=== PATIENT | male | born 1960 | race American Indian/Alaskan Native ===

== ENCOUNTER 2018-07-09 11:48 | Inpatient (IN) | payer SELFPAY ==
[2018-07-09 15:15] LABS: BUN/Creatinine Ratio 8; Blood Urea Nitrogen 5 mg/dL (9-20); Calcium 7.8 mg/dL (8.4-10.2); Hemolysis Index 0
[2018-07-09 15:19] LABS: Mean Corpuscular HGB Conc 29 % (32-34); Mean Corpuscular Hemoglobin 26 pg (28-32); Mean Corpuscular Volume 91 fl (84-94); Red Blood Count 1.29 M/mm3 (3.65-5.03)
[2018-07-09 15:24] LABS: Hematocrit 11.7 % (35.5-45.6); Hemoglobin 3.4 gm/dl (11.8-15.2); Red Cell Distribution Width 21.1 % (13.2-15.2)
[2018-07-09 15:25] LABS: Platelet Count 58 K/mm3 (140-440)
[2018-07-09] MEDS ORDERED: NACL 0.9% 500 ML 500 ML IV ONE (16:24)
--- NOTE | 2018-07-09 16:27 | Emergency Department Report ---
HPI - General Chief Complaint: Extremity Injury, Lower Time Seen by Provider: 07/09/18 16:13 - HPI HPI: 58 year-old male presents to the emergency department from home via EMS with complaint of pain to the bilateral feet and legs and some history of anemia. Patient says that he saw his primary care physician, Dr. Song Weber, through [place] on the of this month and was found to have a significantly low hemoglobin. The patient says that he was called at home when the results came back and was told to get to the emergency department but he did not go at that time. He says that doctor told him that his hemoglobin was less than 1 at that time. He has a history of peripheral neuropathy and was hoping that the discomfort would go away. He denies any chest pain, abdominal pain, shortness of breath, dizziness, headache. He denies any rectal bleeding or any abnormal bleeding from anywhere. He has not taken anything for his symptoms prior to presentation. He is a former smoker and just recently quit in March of this year. ED Past Medical Hx - Past Medical History Additional medical history: neuropathy - Surgical History Additional Surgical History: fempop-Weld 1986 with Fx Femur and KENDALL - Social History Smoking Status: Former Smoker Substance Use Type: Alcohol ED Review of Systems ROS: Stated complaint: LEG PAIN Other details as noted in HPI Comment: All other systems reviewed and negative Constitutional: denies: chills, fever Eyes: denies: eye pain, eye discharge, vision change ENT: denies: ear pain, throat pain Respiratory: denies: cough, shortness of breath, wheezing Cardiovascular: denies: chest pain, palpitations Gastrointestinal: denies: abdominal pain, nausea, diarrhea Genitourinary: denies: urgency, dysuria Musculoskeletal: arthralgia, myalgia. denies: joint swelling Skin: denies: rash, lesions Neurological: denies: headache, weakness, paresthesias Physical Exam - Physical Exam Vital Signs: Vital Signs 07/09/18 11:52 Temperature 98.7 F Pulse Rate 86 Respiratory 16 Rate Blood Pressure 115/62 O2 Sat by Pulse 100 Oximetry Physical Exam: GENERAL: The patient is well-developed well-nourished. HENT: Normocephalic. Atraumatic. Patient has moist mucous membranes. EYES: Extraocular motions are intact. Pupils equal reactive to light bilaterally. Pale conjunctiva. NECK: Supple. Trachea is midline. CHEST/LUNGS: Clear to auscultation. There is no respiratory distress noted. HEART/CARDIOVASCULAR: Regular. There is no tachycardia. There is no murmur. ABDOMEN: Abdomen is soft, nontender. Patient has normal bowel sounds. There is no abdominal distention. SKIN: Skin is warm and dry. NEURO: The patient is awake, alert, and oriented. The patient is cooperative. The patient has no focal neurologic deficits. The patient has normal speech. MUSCULOSKELETAL: There is no tenderness or deformity. There is no limitation range of motion. There is no evidence of acute injury. ED Course Vital Signs 07/09/18 11:52 Temperature 98.7 F Pulse Rate 86 Respiratory 16 Rate Blood Pressure 115/62 O2 Sat by Pulse 100 Oximetry ED Medical Decision Making - Lab Data Result diagrams: 07/09/18 14:57 07/09/18 13:53 - EKG Data -: EKG Interpreted by [facility] EKG shows normal: sinus rhythm, axis, intervals, QRS complexes (Q waves to the septal leads), ST-T waves Rate: normal - EKG Data When compared to previous EKG there are: previous EKG unavailable Interpretation: other (sinus rhythm, normal axis, normal intervals, Q wave to the septal leads) - Medical Decision Making Patient presented originally with complaint of some peripheral neuropathy. Some basic lab work was done that found the patient have significant anemia and thrombocytopenia. No signs of any bleeding. Patient later admits that he does have at least a recent history of anemia and was previously "sent in" for evaluation of his low hemoglobin but he waited about 10 days to do so. Hemoglobin today is 3.4 and platelet count is close to 50. A type and screen has been ordered and the patient will get 4 units of packed red blood cells for transfusion. Patient does not have any chest pain, shortness of breath, neurological changes but his chills and shaking earlier may be secondary to these lab abnormalities. The patient has been presented to the admitting hospitalist for admission, Dr. Avalos. - Differential Diagnosis iron deficiency, B12 deficiency, GI bleed Critical Care Time: No Critical care attestation.: If time is entered above; I have spent that time in minutes in the direct care of this critically ill patient, excluding procedure time. ED Disposition Clinical Impression: Anemia requiring transfusions Peripheral neuropathy Qualifiers: Peripheral neuropathy type: polyneuropathy, unspecified Qualified Code(s): G62.9 - Polyneuropathy, unspecified Disposition: DC-09 OP ADMIT IP TO THIS HOSP Is pt being admited?: Yes Condition: Fair Referrals: PRIMARY CARE, [Primary Care Provider] - 3-5 Days Time of Disposition: 17:48
[2018-07-09 17:19] LABS: Iron 20 ug/dL (49-181); Total Iron Binding Capacity 307 mcg/dL (250-450)
[2018-07-09] MEDS ORDERED: NACL 0.9% 1000 ML 1,000 ML ONE (19:46)
--- NOTE | 2018-07-09 21:47 | History and Physical Report ---
History of Present Illness Date of examination: 07/09/18 History of present illness: 58-year-old man history of hypertension was sent to the emergency room emergency room by his primary care physician for evaluation for anemia. Patient complains of shortness of breath, dizziness, generalized weakness. He denies any hematemesis, but in stool. NSAIDS Review of systems Constitutional: no weight loss, chills, fever Ears, eyes, nose, mouth and throat: no nasal congestion, no nasal discharge, no sinus pressure, no vision change, no red eye. Neck: No neck pain or rigidity. Cardiovascular: no chest pain, palpitations Respiratory: no cough, shortness of breath Gastrointestinal: no abdominal pain hematochezia Genitourinary : no frequency , no hematuria Musculoskeletal: no joint swelling or muscle ache Integumentary: no rash, no pruritis Neurological: no parathesias, no numbness, no focal weakness Endocrine: no cold or heat intolerance, no polyuria or polydipsia Hematologic/Lymphatic: no easy bruising, no easy bleeding, no gland swelling Allergic/Immunologic: no urticaria, no angioedema. PAST MEDICAL HISTORY: Hypertension PAST SURGICAL HISTORY: Femoropopliteal SOCIAL HISTORY: + alcohol, no drugs, tobacco FAMILY HISTORY: Hypertension Medications and Allergies Allergies Allergy/AdvReac Type Severity Reaction Status Date / Time No Known Allergies Allergy Unverified 07/09/18 11:58 Home Medications Medication Instructions Recorded Confirmed Last Taken Type Acetaminophen/Codeine [Tylenol 1 - 2 tab PO Q4H 07/09/18 07/09/18 Unknown History /Codeine # 3 tab] Ciprofloxacin HCl [Cipro] 500 mg PO BID 07/09/18 07/09/18 Unknown History Furosemide [Lasix] 20 mg PO DAILY 07/09/18 07/09/18 Unknown History Naproxen [Naprosyn] 500 mg PO BID 07/09/18 07/09/18 Unknown History Exam - Physical Exam Narrative exam: Gen. appearance: Patient lying in bed, no apparent distress HEENT: Normocephalic, atraumatic, pupils equally round and reactive to light, extraocular movement intact, and no sclericterus,. No JVD or thyromegaly or nodule,neck supple, no carotid bruit ,mucous membranes moist, no exudate or erythema Heart: S1, S2, regular rate and rhythm Lungs: Clear bilaterally, breathing comfortable Abdomen: Positive bowel sounds, non-tender, nondistended, no organomegaly Extremity:no edema cyanosis, clubbing Skin: no rash, dry, warm Neuro: Oriented 3, cranial nerves II-12 intact, speech is fluent, motor and sensory intact Rectal: Refused exam - Constitutional Vitals: Temp Pulse Resp BP Pulse Ox 98.1 F 80 12 144/73 100 07/09/18 21:26 07/09/18 21:26 07/09/18 21:26 07/09/18 21:26 07/09/18 21:26 Results - Labs CBC & Chem 7: 07/09/18 14:57 07/09/18 13:53 Labs: Abnormal lab results 07/09/18 07/09/18 07/09/18 Range/Units 13:53 14:57 16:33 WBC 3.4 L (4.5-11.0) K/mm3 RBC 1.29 L (3.65-5.03) M/mm3 Hgb 3.4 L* (11.8-15.2) gm/dl Hct 11.7 L* (35.5-45.6) % MCH 26 L (28-32) pg MCHC 29 L (32-34) % RDW 21.1 H (13.2-15.2) % Plt Count 58 L (140-440) K/mm3 Sodium 133 L (137-145) mmol/L Carbon Dioxide 19 L (22-30) mmol/L BUN 5 L (9-20) mg/dL Creatinine 0.6 L (0.8-1.5) mg/dL Glucose 107 H (75-100) mg/dL Calcium 7.8 L (8.4-10.2) mg/dL Iron 20 L (49-181) ug/dL Crossmatch 07/09/18 Range/Units 16:33 WBC (4.5-11.0) K/mm3 RBC (3.65-5.03) M/mm3 Hgb (11.8-15.2) gm/dl Hct (35.5-45.6) % MCH (28-32) pg MCHC (32-34) % RDW (13.2-15.2) % Plt Count (140-440) K/mm3 Sodium (137-145) mmol/L Carbon Dioxide (22-30) mmol/L BUN (9-20) mg/dL Creatinine (0.8-1.5) mg/dL Glucose (75-100) mg/dL Calcium (8.4-10.2) mg/dL Iron (49-181) ug/dL Crossmatch See Detail Assessment and Plan Assessment Severe anemia Alcohol abuse Pancytopenia Plan Admit to medicine transfuse blood, consult GI, check iron studies Start CIWA protocol with IV Ativan DVT prophylaxis
[2018-07-09] MEDS ORDERED: ATIVAN IV PRN ×2 (23:00)
[2018-07-09] MEDS ORDERED: ZOFRAN IV PRN (23:00)
[2018-07-09] MEDS ORDERED: SODIUM CHLORIDE FLUSH SYRINGE 10 ML IV PRN (23:00)
[2018-07-09] MEDS ORDERED: TYLENOL PO PRN (23:00)
[2018-07-10] MEDS ORDERED: NACL 0.9% 500 ML 500 ML IV ONE (03:09)
--- NOTE | 2018-07-10 09:24 | Gastroenterology Consultation ---
History of Present Illness - Reason for Consult Consult date: 07/10/18 anemia Requesting physician: HENRY ROMAN - History of Present Illness Patient is a 58 y/o male with PMH of HTN and peripheral neuropathy who was sent to the ED by PCP for evaluation of anemia. Upon admission patient c/o BLE pain, dizziness, and generalized weakness. H/H was found to be 3.4/11.4 to which GI has been consulted. This morning patient was resting in bed w/o acute distress with 3rd unit of PRBCs transfusing. He denies any active signs of bleeding but states that he drank too much alcohol approximately 1 month ago and vomiting up blood. No melena or hematochezia. States that he is trying to stop drinking and has decreased his daily alcohol consumption to 4-5 beers/day. No known hx of liver disease. Takes ASA or Motrin daily. No hx of PUD. No previous endoscopic evaluation with EGD or colonoscopy. No Fhx of GI cancers. Denies fever, wt loss , CP, SOB, abd pain, N/V, dysphagia, diarrhea, or constipation. Past History Past Medical History: hypertension, other (neuropathy) Past Surgical History: Other (Femoropopliteal) Social history: smoking (Former-quit in March), alcohol abuse Family history: hypertension Medications and Allergies Allergies Allergy/AdvReac Type Severity Reaction Status Date / Time No Known Allergies Allergy Unverified 07/09/18 11:58 Home Medications Medication Instructions Recorded Confirmed Last Taken Type Acetaminophen/Codeine [Tylenol 1 - 2 tab PO Q4H 07/09/18 07/09/18 Unknown History /Codeine # 3 tab] Ciprofloxacin HCl [Cipro] 500 mg PO BID 07/09/18 07/09/18 Unknown History Furosemide [Lasix] 20 mg PO DAILY 07/09/18 07/09/18 Unknown History Naproxen [Naprosyn] 500 mg PO BID 07/09/18 07/09/18 Unknown History Active Meds: Active Medications Acetaminophen (Tylenol) 650 mg PO Q4H PRN PRN Reason: Pain MILD(1-3)/Fever >100.5/SEPULVEDA Lorazepam (Ativan) 2 mg IV Q1HR PRN PRN Reason: CIWA-Ar 8-15 Lorazepam (Ativan) 4 mg IV Q1HR PRN PRN Reason: CIWA-Ar 16-25 Ondansetron HCl (Zofran) 4 mg IV Q8H PRN PRN Reason: Nausea And Vomiting Sodium Chloride (Sodium Chloride Flush Syringe 10 Ml) 10 ml IV BID ANALIA Sodium Chloride (Sodium Chloride Flush Syringe 10 Ml) 10 ml IV PRN PRN PRN Reason: LINE FLUSH Review of Systems - Review of Systems All systems: negative Constitutional: weakness Exam - Constitutional Vital Signs: Temp Pulse Resp BP Pulse Ox 98.1 F 97 H 18 125/61 100 07/10/18 06:30 07/10/18 06:30 07/10/18 06:30 07/10/18 06:30 07/10/18 06:30 General appearance: no acute distress - EENT Eyes: PERRL, EOM intact ENT: hearing intact - Respiratory Respiratory: bilateral: CTA - Cardiovascular Rhythm: regular Heart Sounds: Present: S1 & S2 - Gastrointestinal General gastrointestinal: Present: soft, non-tender, non-distended, normal bowel sounds - Neurologic Neurological: alert and oriented x3 - Labs CBC & Chem 7: 07/09/18 14:57 07/09/18 13:53 Lab Results: Laboratory Results - last 24 hr 07/09/18 07/09/18 07/09/18 13:53 14:57 16:33 WBC 3.4 L RBC 1.29 L Hgb 3.4 L* Hct 11.7 L* MCV 91 MCH 26 L MCHC 29 L RDW 21.1 H Plt Count 58 L Sodium 133 L Potassium 3.9 Chloride 103.7 Carbon Dioxide 19 L Anion Gap 14 BUN 5 L Creatinine 0.6 L Estimated GFR > 60 BUN/Creatinine Ratio 8 Glucose 107 H Calcium 7.8 L Iron 20 L TIBC 307 Ferritin Blood Type Antibody Screen Crossmatch 07/09/18 07/09/18 16:33 16:33 WBC RBC Hgb Hct MCV MCH MCHC RDW Plt Count Sodium Potassium Chloride Carbon Dioxide Anion Gap BUN Creatinine Estimated GFR BUN/Creatinine Ratio Glucose Calcium Iron TIBC Ferritin 22.1 Blood Type O POSITIVE Antibody Screen Negative Crossmatch See Detail Assessment and Plan 1.anemia -HGB 3.4- 3rd unit PRBCs transfusing with 1 more unit pending -continue to monitor H/H and transfuse as needed -hold blood thinning medications -currently HD stable -no active signs of bleeding but reports vomiting blood 1 month ago -etiology unclear -recommend an EGD/colonoscopy for further evaluation- option discussed with patient including nature of procedures, benefits, purpose, and risks. He is currently refusing to proceed with procedures. He states he does not want to stay in the hospital and wishes to have procedures done as an outpatient. Discussed risks of not having procedures at this time with patient with understanding voiced and he still refuses. Spoke with Dr. Carreon to inform him of patient's decision. -continue PPI and supportive care -avoid NSAIDs -will be available for procedures if patient changes his mind. If not recommend patient be d/c on PPI and follow up in clinic in 1 week to schedule EGD/ colonoscopy as an outpatient
--- NOTE | 2018-07-10 09:30 | Progress Note ---
Hospitalist Physical - Physical exam Narrative exam: GEN:Not in acute distress, HEENT: Normocephalic, atraumatic, Neck: supple, No JVD Lungs:Clear to auscultation bilaterally, no crackles, no wheeze Heart:S1 and S2 reg, no murmurs, rubs or gallop Abd:soft, non-tender, non-distended, Normal bowel sounds Ext: No edema, clubbing or cyanosis Neuro:AAO x 3, No focal neurological signs - Constitutional Vitals: Temp Pulse Resp BP Pulse Ox 98.1 F 97 H 18 125/61 100 07/10/18 06:30 07/10/18 06:30 07/10/18 06:30 07/10/18 06:30 07/10/18 06:30 Results - Labs CBC & Chem 7: 07/10/18 15:24 07/10/18 15:24 Labs: Laboratory Last Values WBC 3.4 K/mm3 (4.5-11.0) L 07/09/18 14:57 RBC 1.29 M/mm3 (3.65-5.03) L 07/09/18 14:57 Hgb 3.4 gm/dl (11.8-15.2) L* 07/09/18 14:57 Hct 11.7 % (35.5-45.6) L* 07/09/18 14:57 MCV 91 fl (84-94) 07/09/18 14:57 MCH 26 pg (28-32) L 07/09/18 14:57 MCHC 29 % (32-34) L 07/09/18 14:57 RDW 21.1 % (13.2-15.2) H 07/09/18 14:57 Plt Count 58 K/mm3 (140-440) L 07/09/18 14:57 Sodium 133 mmol/L (137-145) L 07/09/18 13:53 Potassium 3.9 mmol/L (3.6-5.0) 07/09/18 13:53 Chloride 103.7 mmol/L (98-107) 07/09/18 13:53 Carbon Dioxide 19 mmol/L (22-30) L 07/09/18 13:53 Anion Gap 14 mmol/L 07/09/18 13:53 BUN 5 mg/dL (9-20) L 07/09/18 13:53 Creatinine 0.6 mg/dL (0.8-1.5) L 07/09/18 13:53 Estimated GFR > 60 ml/min 07/09/18 13:53 BUN/Creatinine Ratio 8 % 07/09/18 13:53 Glucose 107 mg/dL (75-100) H 07/09/18 13:53 Calcium 7.8 mg/dL (8.4-10.2) L 07/09/18 13:53 Iron 20 ug/dL (49-181) L 07/09/18 16:33 TIBC 307 mcg/dL (250-450) 07/09/18 16:33 Ferritin 22.1 ng/mL (13.0-400.0) 07/09/18 16:33 Blood Type O POSITIVE 07/09/18 16:33 Antibody Screen Negative 07/09/18 16:33 Crossmatch See Detail 07/09/18 16:33
[2018-07-10] MEDS ORDERED: SODIUM CHLORIDE FLUSH SYRINGE 10 ML IV SCH (10:00)
[2018-07-10 15:40] VITALS: BP 150/86
[2018-07-10 15:49] LABS: Basophils % (Auto) 1.2 % (0.0-1.8); Eosinophils % (Auto) 0.7 % (0.0-4.3); Hematocrit 29.1 % (35.5-45.6); Hemoglobin 9.6 gm/dl (11.8-15.2); Lymphocytes # (Auto) 0.6 K/mm3 (1.2-5.4); Lymphocytes % (Auto) 18.7 % (13.4-35.0); Mean Corpuscular HGB Conc 33 % (32-34); Mean Corpuscular Hemoglobin 29 pg (28-32); Mean Corpuscular Volume 88 fl (84-94); Monocytes # (Auto) 0.4 K/mm3 (0.0-0.8); Monocytes % (Auto) 11.8 % (0.0-7.3); Red Blood Count 3.32 M/mm3 (3.65-5.03); Red Cell Distribution Width 16.2 % (13.2-15.2)
[2018-07-10 15:50] LABS: Platelet Count 47 K/mm3 (140-440)
[2018-07-10 16:03] LABS: BUN/Creatinine Ratio 14; Blood Urea Nitrogen 7 mg/dL (9-20); Calcium 7.4 mg/dL (8.4-10.2); Hemolysis Index 4
--- NOTE | 2018-07-10 18:56 | Discharge Summary ---
Providers - Providers Date of Admission: 07/09/18 21:46 Attending physician: JENNIE ALANIZ 07/09/18 23:00 Consult to Physician [CONS] Routine Comment: Consulting Provider: MINDY BARNETT Physician Instructions: Reason For Exam: hb 3 Primary care physician: [employer] Hospitalization Condition: Fair Core Measure Documentation - Palliative Care Palliative Care/ Comfort Measures: Not Applicable Exam - Constitutional Vitals: Temp Pulse Resp BP Pulse Ox 98.4 F 75 21 150/86 100 07/10/18 14:43 07/10/18 14:43 07/10/18 14:43 07/10/18 14:43 07/10/18 14:43 Plan Follow up with: PRIMARY CAREMD [Primary Care Provider] - 3-5 Days
== END 2018-07-10 18:10 | disposition home or self-care (01) | DRG 812 ==
LOC: ED 11:48 → IMCU 21:46
PROVIDERS: ADMIT Internal Medicine; ATTEND Internal Medicine
PROC: 30233N1 Transfusion of Nonautologous Red Blood Cells into Peripheral Vein, Percutaneous Approach (ICD-10-PCS; principal; 2018-07-09)
DX: D64.9 Anemia, unspecified (principal); I10 Essential (primary) hypertension; G62.9 Polyneuropathy, unspecified; F17.200 Nicotine dependence, unspecified, uncomplicated; D61.818 Other pancytopenia; F10.10 Alcohol abuse, uncomplicated; Z53.29 Procedure and treatment not carried out because of patient's decision for other reasons; Z82.49 Family history of ischemic heart disease and other diseases of the circulatory system; Z79.899 Other long term (current) drug therapy
CPT/HCPCS: 36415; 80048; 82728; 83550; 85025; 85027; 86850; 86900; 86901; 86920; 93005; 93010; J7030; J7040; P9016